=== PATIENT | male | born 1950 | race African-American/Black ===

== ENCOUNTER 2017-11-04 14:59 | Inpatient (IN) | payer OTHER ==
[2017-11-04 15:21] VITALS: BMI 16.0
--- NOTE | 2017-11-04 16:56 | HP ---
COWS - Scale Resting Pulse: 2= [place] 101-120 Sweatin= Chills/Flushing Restless Observation: 1= Difficult to Sit Still Pupil Size: 1= Pupils >than Normal Bone or Joint Aches: 1= Mild Discomfort Runny Nose/ Eye Tearin= Constantly Teary/Runny GI Upset > 30mins: 0= None Tremor Observation: 1= Tremor [place]amay, Not Seen Yawning Observation: 1= 1-2x During Session Anxiety or Irritability: 2=Irritable/Anxious Goose Flesh Skin: 0=Smooth Skin COWS Score: 14 CIWA Score - CIWA Score Nausea/Vomitin-Mild Nausea/No Vomiting Muscle Tremors: 2 Anxiety: 4-Mod. Anxious/Guarded Agitation: 0-Normal Activity Paroxysmal Sweats: 1-Minimal Palms Moist Orientation: 3-Disoriented Date>2 days Tacttile Disturbances: 1-Very Mild Itch/Numbness Auditory Disturbances: 1-Very Mild Visual Disturbances: 1-Very Mild Sensitivity Headache: 1-Very Mild CIWA-Ar Total Score: 15 Admission [facility] - HPI Chief Complaint: withdrawal symptoms Allergies/Adverse Reactions: Allergies Allergy/AdvReac Type Severity Reaction Status Date / Time No Known Allergies Allergy Verified 11/04/17 16:50 History of Present Illness: 67 yo male with history of alcohol, heroin, nicotine dependence is here for detox. Reports 15 year cigarette smoking hx currently smokes 3 cigarettes per day. PHMX: HTN, Asthma, DMII, and frequent falls. Currently uses a rollator walker to ambulate d/t unsteady gait. Currently not in Methadone Program. Last detox 2014, does not recall the name of the facility. Longest period of sobriety 6 months. Denies suicidal / homicidal ideation or suicide attempts. Exam Limitations: No Limitations - Ebola screening Have you traveled outside of the country in the last 21 days: No (N) Have you had contact with anyone from an Ebola affected area: No Have you been sick,other than usual withdrawal symptoms: No Do you have a fever: No - Review of Systems Constitutional: Weakness (bilateral lower extremities), Unintentional Wgt. Loss (last three weeks lost 15 lbs) EENT: reports: No Symptoms Reported, Other (missing teeth, wears glasses) Respiratory: reports: Cough (2 - 3 weeks) Cardiac: reports: No Symptoms Reported GI: reports: Poor Fluid Intake, Abdominal cramping : reports: Urgency, Other (reports hx acute kidney failure. Nocturia, reports wakes up 10x at night. Reports ocassional incotinence episodes.) Musculoskeletal: reports: Muscle Weakness (lower extremities) Integumentary: reports: Dryness Neuro: reports: Headache, Unsteady Gait, Other (forgetfulness) Endocrine: reports: Increased Thirst, Change in Weight Hematology: reports: Anemia Psychiatric: reports: Orientated x3 (needs prompting , cueing and additional time to respond), Depressed Other Systems: Reviewed and Negative Patient History - Patient Medical History Hx Anemia: No Hx Asthma: Yes (currently on treatment) Hx Chronic Obstructive Pulmonary Disease (COPD): No Hx Cancer: No Hx Cardiac Disorders: No Hx Congestive Heart Failure: No Hx Hypertension: Yes (currently on treatment) Hx Hypercholesterolemia: No Hx Pacemaker: No HX Cerebrovascular Accident: No Hx Seizures: No Hx Dementia: No (but reports hes forgetful ) Hx Diabetes: Yes Hx Gastrointestinal Disorders: No Hx Liver Disease: No Hx Genitourinary Disorders: No Hx Sexually Transmitted Disorders: No Hx Renal Disease (ESRD): No Hx Thyroid Disease: No Hx Human Immunodeficiency Virus (HIV): No Hx Hepatitis C: No Hx Depression: No Hx Suicide Attempt: No Hx Bipolar Disorder: No Hx Schizophrenia: No - Patient Surgical History Past Surgical History: No Hx Neurologic Surgery: No Hx Cataract Extraction: No Hx Cardiac Surgery: No Hx Lung Surgery: No Hx Breast Surgery: No Hx Breast Biopsy: No Hx Abdominal Surgery: No Hx Appendectomy: No Hx Cholecystectomy: No Hx Genitourinary Surgery: No Hx Section: No Hx Orthopedic Surgery: No Anesthesia Reaction: No - PPD History Previous Implant?: Yes Documented Results: Negative w/o proof Date: 11/11/12 PPD to be Administered?: Yes - Reproductive History Patient is a Female of Child Bearing Age (11 -55 yrs old): Yes - Smoking Cessation Smoking history: Current every day smoker Have you smoked in the past 12 months: Yes Aproximately how many cigarettes per day: 5 Hx Chewing Tobacco Use: No Initiated information on smoking cessation: Yes 'Breaking Loose' booklet given: 11/04/17 - Substance & Tx. History Hx Alcohol Use: Yes Hx Substance Use: Yes Substance Use Type: Alcohol, Heroin Hx Substance Use Treatment: Yes (2014) - Substances Abused Heroin Route: Inhalation Frequency: Daily Amount used: 25-35 BAGS Age of first use: 18 Date of Last Use: 11/04/17 Alcohol Route: Oral Frequency: Daily Amount used: 2 PINTS VODKA Age of first use: 20 Date of Last Use: 11/04/17 Family Disease History - Family Disease History Family Disease History: Other: Father (dec, Leukemia), Mother (dec, DM ) Admission Physical Exam S - Vital Signs Vital Signs: Vital Signs - 24 hr 11/04/17 15:19 Temperature 96 F L Pulse Rate 101 H Respiratory 20 Rate Blood Pressure 153/100 - Physical General Appearance: Yes: Disheveled, Cachetic, Thin, Anxious, Other (patient was very tearful during assesment) HEENTM: Yes: EOMI, Hearing grossly Normal, Normal ENT Inspection, Normocephalic , Normal Voice, KATHLEEN, Pharynx Normal, Other (poor dentation, wears top dentures , uses glasses) Respiratory: Yes: Chest Non-Tender, Lungs Clear, Normal Breath Sounds, No Respiratory Distress, No Accessory Muscle Use Neck: Yes: Within Normal Limits, No masses,lesions,Nodules, Supple, Trachea in good position Breast: Yes: Breast Exam Deferred Cardiology: Yes: Regular Rhythm, Regular Rate, S1, S2 Abdominal: Yes: Normal Bowel Sounds, Non Tender, Flat, Soft Genitourinary: Yes: Uregency, Nocturia Back: Yes: Within Normal Limits, Normal Inspection Musculoskeletal: Yes: full range of Motion, Other (uses a rollator walker to ambulate, slow unsteady gait) Extremities: Yes: Normal Capillary Refill, Normal Inspection, Normal Range of Motion, Non-Tender Neurological: Yes: senior marketing associate II-XII NML intact, Fully Oriented, Motor Strength 5/5, Depressed Affect, Other (Patient was very tearful during assessment. Patient requires additional time to process information and respond.) Integumentary: Yes: Normal Color, Dry, Warm Lymphatic: Yes: Within Normal Limits - Addiitonal Findings: HIV testing offered today, patient decline. Benefits and risk discussed. - Diagnostic (1) Opioid dependence with withdrawal Current Visit: Yes Status: Acute (2) Alcohol dependence with withdrawal Current Visit: Yes Status: Acute (3) Asthma Current Visit: Yes Status: Chronic Qualifiers: Asthma severity: mild (4) Essential hypertension Current Visit: Yes Status: Chronic (5) Diabetes mellitus type 2, insulin dependent Current Visit: Yes Status: Chronic (6) Weight loss Current Visit: Yes Status: Acute (7) Dependent on walker for ambulation Current Visit: Yes Status: Chronic (8) Dehydration Current Visit: Yes Status: Acute (9) Depressed mood Current Visit: Yes Status: Acute (10) Nicotine dependence Current Visit: Yes Status: Chronic Qualifiers: Nicotine product type: cigarettes Substance use status: uncomplicated Qualified Code(s): F17.210 - Nicotine dependence, cigarettes, uncomplicated Cleared for Admission S - Detox or Rehab [facility] Level of Care: Medically Managed Detox Regimen/Protocol: Methadone/Librium S Breath Alcohol Content Breath Alcohol Content: 0 Urine Drug Screen - Results Drug Screen Negative: No Urine Drug Screen Results: OPI-Opiates, MTD-Methadone
[2017-11-04] MEDS ORDERED: MENTHOL/PHENOL 1 EACH UD MM PRN (17:37)
[2017-11-04] MEDS ORDERED: chlordiazePOXIDE HCL 25 MG CAPSULE PO ONE (17:37)
[2017-11-04] MEDS ORDERED: ACETAMINOPHEN 325 MG TABLET (FP) PO PRN (17:37)
[2017-11-04] MEDS ORDERED: chlordiazePOXIDE HCL 25 MG CAPSULE PO PRN (17:37)
[2017-11-04] MEDS ORDERED: MAGNESIUM CITRATE 300 ML BOTTLE PO PRN (17:37)
[2017-11-04] MEDS ORDERED: NICOTINE POLACRILEX 2 MG GUM BC PRN (17:37)
[2017-11-04] MEDS ORDERED: MAG HYDROX/AL HYDROX/SIMETH 30 ML UNIT-DOSE CUP PO PRN (17:37)
[2017-11-04] MEDS ORDERED: LOPERAMIDE HCL 2 MG CAPSULE PO PRN (17:37)
[2017-11-04] MEDS ORDERED: guaiFENesin/D-METHORPHAN HB 10 ML UNIT-DOSE CUPS PO PRN (17:37)
[2017-11-04] MEDS ORDERED: MAGNESIUM HYDROX 2400MG/30ML ORAL SUSPENSION 30 ML CUP PO PRN (17:37)
[2017-11-04] MEDS ORDERED: P-EPHED 60MG/TRIPROLIDI 2.5MG TABLET PO PRN (17:37)
[2017-11-04] MEDS ORDERED: hydrOXYzine PAMOATE 25 MG CAPSULE (FP) PO PRN (17:37)
[2017-11-04] MEDS ORDERED: IBUPROFEN 400 MG TABLET (FP) PO PRN (17:37)
[2017-11-04] MEDS ORDERED: METHADONE HCL 10 MG TABLET (FOR DETOX USE ONLY) PO ONE ×2 (17:37→23:00)
[2017-11-04] MEDS ORDERED: ALBUTEROL SO4 18 GM HFA INHALER IH PRN (17:40)
[2017-11-04] MEDS ORDERED: ALBUTEROL SO4 2.5/IPRATROPIUM 0.5 INH SOL 3 ML VIAL.NEB. NEB PRN (18:03)
[2017-11-04] MEDS ORDERED: INSULIN (NOVOLOG) ASPART 100 UNITS/ML 10ML VIAL SQ SCH (19:00)
[2017-11-04] MEDS ORDERED: METHADONE HCL 10 MG TABLET (FOR DETOX USE ONLY) ONE (21:07)
[2017-11-04] MEDS ORDERED: INSULIN (NOVOLOG) ASPART 100 UNITS/ML 10ML VIAL ONE (22:11)
[2017-11-04] MEDS: chlordiazePOXIDE HCL 25 MG CAPSULE PO SCH (22:28)
[2017-11-04] MEDS: INSULIN DETEMIR 100 UNITS/ML MDV SQ SCH (22:34)
[2017-11-04] MEDS: INSULIN SLIDING SCALE (NOVOLOG) 1 VIAL SQ SCH (22:34)
[2017-11-04] MEDS: MONTELUKAST NA 10 MG TABLET PO SCH (22:35)
[2017-11-04] MEDS: THIAMINE HCL 100 MG TABLET (FP) PO SCH (22:35)
[2017-11-04 23:22] LABS: URINE APPEARANCE CLEAR; URINE BILIRUBIN NEGATIVE (NEGATIVE); URINE BLOOD 1+ (NEGATIVE); URINE COLOR COLORLESS; URINE GLUCOSE (UA) 3+ (NEGATIVE); URINE KETONE TRACE (NEGATIVE); URINE LEUK ESTERASE NEGATIVE (NEGATIVE); URINE NITRITE NEGATIVE (NEGATIVE); URINE UROBILINOGEN NEGATIVE mg/dL (0.2-1.0)
[2017-11-04 23:27] LABS: URINE PROTEIN 1+ (NEGATIVE)
[2017-11-05] MEDS: chlordiazePOXIDE HCL 25 MG CAPSULE PO SCH ×4 (06:01→22:19)
[2017-11-05] MEDS ORDERED: INSULIN (NOVOLOG) ASPART 100 UNITS/ML 10ML VIAL ONE ×2 (06:58→11:50)
[2017-11-05] MEDS: glyBURIDE 5 MG TABLET (UD) PO SCH (06:59)
[2017-11-05] MEDS ORDERED: INSULIN (NOVOLOG) ASPART 100 UNITS/ML 10ML VIAL SQ SCH (07:00)
[2017-11-05] MEDS: INSULIN SLIDING SCALE (NOVOLOG) 1 VIAL SQ SCH ×3 (07:00→16:38)
--- NOTE | 2017-11-05 09:11 | CONSULT ---
[facility] Psychiatric Consult - Data Date of interview: 11/05/17 Admission source: [facility] Identifying data: This is 67 years old AA, cachectic male, ambulating with walker, withy no psychiatric hospitalization history lookig for detox from: Opioids, Nicotine asnd Alcohol Substance Abuse History: - Smoking Cessation. Smoking history: Current every day smoker. Have you smoked in the past 12 months: Yes. Aproximately how many cigarettes per day: 5. Hx Chewing Tobacco Use: No. Initiated information on smoking cessation: Yes. 'Breaking Loose' booklet given: 11/04/17. - Substance & Tx. History. Hx Alcohol Use: Yes. Hx Substance Use: Yes. Substance Use Type : Alcohol, Heroin. Hx Substance Use Treatment: Yes (2014). - Substances Abused. Heroin. Route: Inhalation. Frequency: Daily. Amount used: 25-35 BAGS. Age of first use: 18. Date of Last Use: 11/04/17. Alcohol. Route: Oral. Frequency: Daily. Amount used: 2 PINTS VODKA. Age of first use: 20. Date of Last Use: 11/04/17 Medical History: Weight loss, HTN, DM-2, Umbulatientg with walker,. Patient reports both Kidneys failure, reports need nephrogy observation Psychiatric History: Patient bdenies past psychiatric history, reports no psychioatric medicastions usage prior to admission Physical/Sexual Abuse/Trauma History: Denies Additional Comment: Observation. Detox Unit Care Protocol Mental Status Exam - Mental Status Exam Alert and Oriented to: Place, Person Cognitive Function: Fair Patient Appearance: Unkempt Mood: Apprehensive Affect: Mood Congruent Patient Behavior: Cooperative Speech Pattern: Appropriate Voice Loudness: Mildly Soft/Quiet Thought Process: Goal Oriented Thought Disorder: Being Controlled Hallucinations: Denies Suicidal Ideation: Denies Homicidal Ideation: Denies Insight/Judgement: Fair Sleep: Fair Appetite: Weight loss Muscle strength/Tone: Mild Hypotonicity Gait/Station: Deferred Additional Comments: Observation. Detox Unit Care Protocol Psychiatric Findings - Problem List ([place] 1, 2,3) (1) Drug-induced mood disorder Current Visit: Yes Status: Acute (2) Alcohol dependence with withdrawal Current Visit: Yes Status: Acute (3) Depressed mood Current Visit: Yes Status: Acute (4) Opioid dependence with withdrawal Current Visit: Yes Status: Acute (5) Weight loss Current Visit: Yes Status: Acute (6) Nicotine dependence Current Visit: Yes Status: Chronic Qualifiers: Nicotine product type: cigarettes Substance use status: uncomplicated Qualified Code(s): F17.210 - Nicotine dependence, cigarettes, uncomplicated - Initial Treatment Plan Initial Treatment Plan: Observation. Detox Unit Care Protocol
--- NOTE | 2017-11-05 09:50 | EKG ---
Test Reason : Blood Pressure : / mmHG Vent. Rate : 084 BPM Atrial Rate : 084 BPM P-R Int : 150 ms QRS Dur : 084 ms QT Int : 400 ms P-R-T Axes : 085 -53 078 degrees QTc Int : 472 ms SINUS RHYTHM WITH OCCASIONAL PREMATURE VENTRICULAR COMPLEXES LEFT AXIS DEVIATION ANTEROSEPTAL INFARCT , AGE UNDETERMINED ABNORMAL ECG NO PREVIOUS ECGS AVAILABLE Confirmed by CHRISTOPHER GAO, RODRÍGUEZ ([id number]) on 11/05/2017 9:50:13 AM Referred By: Confirmed By:RODRÍGUEZ WHITE MD
[2017-11-05] MEDS ORDERED: METHADONE HCL 10 MG TABLET (FOR DETOX USE ONLY) PO SCH (10:00)
[2017-11-05 10:22] LABS: HEMATOCRIT 35.1 % (35.4-49); HEMOGLOBIN 10.6 GM/dL (11.7-16.9); MCHC 30.3 g/dl (32.0-35.9); MEAN PLT VOLUME 9.6 fl (7.5-11.1); PLATELET COUNT 138 K/MM3 (134-434); RBC 5.31 M/mm3 (4.00-5.60); RDW 16.4 % (11.9-15.9)
[2017-11-05 10:31] LABS: ALBUMIN 3.1 g/dl (3.4-5.0); ANION GAP 8 (8-16); BILIRUBIN,TOTAL 0.3 mg/dL (0.2-1.0); BLOOD UREA NITROGEN 31 mg/dL (7-18); CALCIUM 8.6 mg/dL (8.5-10.1); CHLORIDE 101 mmol/L (98-107); CO2 29 mmol/L (21-32); CREATININE 1.5 mg/dL (0.7-1.3); SGOT/AST 12 U/L (15-37); SGPT/ALT 23 U/L (12-78); SODIUM 138 mmol/L (136-145); TOT PROT 6.9 g/dl (6.4-8.2)
[2017-11-05 10:32] LABS: ALK PHOS 85 U/L (45-117)
[2017-11-05 10:39] LABS: GLUCOSE,RANDOM 405 mg/dL (74-106)
[2017-11-05] MEDS: LISINOPRIL 10 MG TABLET (FP) PO SCH (10:42)
[2017-11-05] MEDS: PRENATAL VITAMINS W/ FOLIC ACID TABLET (FP) PO SCH (10:42)
[2017-11-05] MEDS: NICOTINE 14 MG/24 HOURS TOPICAL PATCH TD SCH (10:44)
--- NOTE | 2017-11-05 10:56 | EKG ---
Test Reason : Blood Pressure : / mmHG Vent. Rate : 072 BPM Atrial Rate : 072 BPM P-R Int : 158 ms QRS Dur : 074 ms QT Int : 410 ms P-R-T Axes : 078 -34 060 degrees QTc Int : 448 ms NORMAL SINUS RHYTHM LEFT AXIS DEVIATION ABNORMAL ECG WHEN COMPARED WITH ECG OF 04-NOV-2017 21:36, PREMATURE VENTRICULAR COMPLEXES ARE NO LONGER PRESENT CRITERIA FOR ANTEROSEPTAL INFARCT ARE NO LONGER PRESENT Confirmed by RODRÍGUEZ WHITE MD ([id number]) on 11/05/2017 10:56:37 AM Referred By: Confirmed By:RODRÍGUEZ WHITE MD
[2017-11-05 11:23] LABS: SICKLE CELL SCREEN POSITIVE (NEGATIVE)
--- NOTE | 2017-11-05 11:30 | PN ---
[facility] CIWA - CIWA Score Nausea/Vomitin-No Nausea/No Vomiting Muscle Tremors: 4-Moderate,w/Arms Extend Anxiety: 4-Mod. Anxious/Guarded Agitation: 4-Moderately Restless Paroxysmal Sweats: 1-Minimal Palms Moist Orientation: 0-Oriented Tacttile Disturbances: 3-Moderate Itch/Numb/Burn Auditory Disturbances: 0-None Visual Disturbances: 0-None Headache: 0-None Present CIWA-Ar Total Score: 16 [facility] COWS - Scale Resting Pulse: 1= [place] 81-100 Sweatin= Chills/Flushing Restless Observation: 3= Extraneous Movement Pupil Size: 0= Normal to Room Light Bone or Joint Aches: 4=Acute Joint/Muscle Pain Runny Nose/ Eye Tearin= Nasal Congestion GI Upset > 30mins: 0= None [facility] Progress Note (SOAP) Subjective: ANXIETY,SWEATS,CONSTIPATED X 4-5 DAYS--REQUESTING MIRALAX. Objective: 11/05/17 11:29 Vital Signs Temperature 96.2 F L 11/05/17 09:07 Pulse Rate 81 11/05/17 09:07 Respiratory Rate 18 11/05/17 09:07 Blood Pressure 151/98 11/05/17 09:07 O2 Sat by Pulse Oximetry (%) Laboratory Last Values WBC 5.0 K/mm3 (4.0-10.0) 11/05/17 07:30 RBC 5.31 M/mm3 (4.00-5.60) 11/05/17 07:30 Hgb 10.6 GM/dL (11.7-16.9) L D 11/05/17 07:30 Hct 35.1 % (35.4-49) L 11/05/17 07:30 MCV 66.0 fl (80-96) L 11/05/17 07:30 MCH 20.0 pg (25.7-33.7) L 11/05/17 07:30 MCHC 30.3 g/dl (32.0-35.9) L 11/05/17 07:30 RDW 16.4 % (11.9-15.9) H 11/05/17 07:30 Plt Count 138 K/MM3 (134-434) 11/05/17 07:30 MPV 9.6 fl (7.5-11.1) 11/05/17 07:30 Sickle Cell Screen Positive (NEGATIVE) 11/05/17 07:30 Sodium 138 mmol/L (136-145) 11/05/17 07:30 Potassium 5.0 mmol/L (3.5-5.1) D 11/05/17 07:30 Chloride 101 mmol/L (98-107) 11/05/17 07:30 Carbon Dioxide 29 mmol/L (21-32) 11/05/17 07:30 Anion Gap 8 (8-16) 11/05/17 07:30 BUN 31 mg/dL (7-18) H D 11/05/17 07:30 Creatinine 1.5 mg/dL (0.7-1.3) H D 11/05/17 07:30 Creat Clearance w eGFR 46.68 (>60) 11/05/17 07:30 POC Glucometer 247 UNITS (80-120) 11/05/17 06:00 Random Glucose 405 mg/dL (74-106) H* D 11/05/17 07:30 Calcium 8.6 mg/dL (8.5-10.1) 11/05/17 07:30 Total Bilirubin 0.3 mg/dL (0.2-1.0) 11/05/17 07:30 AST 12 U/L (15-37) L D 11/05/17 07:30 ALT 23 U/L (12-78) D 11/05/17 07:30 Alkaline Phosphatase 85 U/L (45-117) 11/05/17 07:30 Total Protein 6.9 g/dl (6.4-8.2) 11/05/17 07:30 Albumin 3.1 g/dl (3.4-5.0) L 11/05/17 07:30 Urine Color Colorless 11/04/17 08:20 Urine Appearance Clear 11/04/17 08:20 Urine pH 5.0 (5.0-8.0) 11/04/17 08:20 Ur Specific [facility] 1.020 (1.001-1.035) 11/04/17 08:20 Urine Protein 1+ (NEGATIVE) H 11/04/17 08:20 Urine Glucose (UA) 3+ (NEGATIVE) H 11/04/17 08:20 Urine Ketones Trace (NEGATIVE) H 11/04/17 08:20 Urine Blood 1+ (NEGATIVE) H 11/04/17 08:20 Urine Nitrite Negative (NEGATIVE) 11/04/17 08:20 Urine Bilirubin Negative (NEGATIVE) 11/04/17 08:20 Urine Urobilinogen Negative mg/dL (0.2-1.0) 11/04/17 08:20 Ur Leukocyte Esterase Negative (NEGATIVE) 11/04/17 08:20 Urine WBC (Auto) <1 /hpf (3-5) 11/04/17 08:20 Urine RBC (Auto) 1 /hpf (0-3) 11/04/17 08:20 Assessment: 11/05/17 11:30 WITHDRAWAL SX OIC Plan: CONTINUE DETOX MIRALAX DIRECTED INCREASE PO FLUIDS.
[2017-11-05] MEDS: POLYETHYLENE GLYCOL 3350 119 GM BTL PO SCH ×2 (14:13→22:46)
[2017-11-05] MEDS: THIAMINE HCL 100 MG TABLET (FP) PO SCH (22:17)
[2017-11-05] MEDS: MONTELUKAST NA 10 MG TABLET PO SCH (22:17)
[2017-11-05] MEDS: INSULIN DETEMIR 100 UNITS/ML MDV SQ SCH (22:19)
[2017-11-06] MEDS: chlordiazePOXIDE HCL 25 MG CAPSULE PO SCH ×2 (06:04→10:47)
[2017-11-06] MEDS: glyBURIDE 5 MG TABLET (UD) PO SCH (06:04)
[2017-11-06] MEDS: INSULIN SLIDING SCALE (NOVOLOG) 1 VIAL SQ SCH ×5 (06:48→21:20)
[2017-11-06] MEDS ORDERED: INSULIN (NOVOLOG) ASPART 100 UNITS/ML 10ML VIAL ONE ×3 (07:04→21:02)
[2017-11-06] MEDS: POLYETHYLENE GLYCOL 3350 119 GM BTL PO SCH ×2 (10:47→21:19)
[2017-11-06] MEDS: METHADONE HCL 5 MG TABLET (FOR DETOX USE ONLY) PO SCH (10:47)
[2017-11-06] MEDS: NICOTINE 14 MG/24 HOURS TOPICAL PATCH TD SCH (10:47)
[2017-11-06] MEDS: PRENATAL VITAMINS W/ FOLIC ACID TABLET (FP) PO SCH (10:47)
[2017-11-06] MEDS: LISINOPRIL 10 MG TABLET (FP) PO SCH (10:48)
--- NOTE | 2017-11-06 11:21 | PN ---
[facility] CIWA - CIWA Score Nausea/Vomitin-No Nausea/No Vomiting Muscle Tremors: 3 Anxiety: 4-Mod. Anxious/Guarded Agitation: 3 Paroxysmal Sweats: No Perspiration Orientation: 1-Uncertain about Date Tacttile Disturbances: 3-Moderate Itch/Numb/Burn Auditory Disturbances: 0-None Visual Disturbances: 0-None Headache: 0-None Present CIWA-Ar Total Score: 14 [facility] COWS - Scale Resting Pulse: 0= [place] 80 or Below Sweatin= Chills/Flushing Restless Observation: 0= Sits Still Pupil Size: 0= Normal to Room Light Bone or Joint Aches: 4=Acute Joint/Muscle Pain Runny Nose/ Eye Tearin= None GI Upset > 30mins: 0= None Tremor Observation of Outstretched Hands: 2= Slight Tremor Visible Yawning Observation: 1= 1-2x During Session Anxiety or Irritability: 2=Irritable/Anxious Goose Flesh Skin: 0=Smooth Skin COWS Score: 10 [facility] Progress Note (SOAP) Subjective: PT SEEN SITTING ON HIS BED. PT VERBALIZED TIREDNESS/ APPEARS WEAK. REPORTS ATE HIS BREAKFAST. PT HAD A BM POST MIRALAX TREATMENT. Objective: 11/06/17 11:20 Vital Signs Temperature 96.6 F L 11/06/17 09:30 Pulse Rate 78 11/06/17 09:30 Respiratory Rate 18 11/06/17 09:30 Blood Pressure 99/62 11/06/17 09:30 O2 Sat by Pulse Oximetry (%) Laboratory Last Values WBC 5.0 K/mm3 (4.0-10.0) 11/05/17 07:30 RBC 5.31 M/mm3 (4.00-5.60) 11/05/17 07:30 Hgb 10.6 GM/dL (11.7-16.9) L D 11/05/17 07:30 Hct 35.1 % (35.4-49) L 11/05/17 07:30 MCV 66.0 fl (80-96) L 11/05/17 07:30 MCH 20.0 pg (25.7-33.7) L 11/05/17 07:30 MCHC 30.3 g/dl (32.0-35.9) L 11/05/17 07:30 RDW 16.4 % (11.9-15.9) H 11/05/17 07:30 Plt Count 138 K/MM3 (134-434) 11/05/17 07:30 MPV 9.6 fl (7.5-11.1) 11/05/17 07:30 Sickle Cell Screen Positive (NEGATIVE) 11/05/17 07:30 Sodium 138 mmol/L (136-145) 11/05/17 07:30 Potassium 5.0 mmol/L (3.5-5.1) D 11/05/17 07:30 Chloride 101 mmol/L (98-107) 11/05/17 07:30 Carbon Dioxide 29 mmol/L (21-32) 11/05/17 07:30 Anion Gap 8 (8-16) 11/05/17 07:30 BUN 31 mg/dL (7-18) H D 11/05/17 07:30 Creatinine 1.5 mg/dL (0.7-1.3) H D 11/05/17 07:30 Creat Clearance w eGFR 46.68 (>60) 11/05/17 07:30 POC Glucometer 505 UNITS (80-120) 11/06/17 06:03 Random Glucose 503 mg/dL (74-106) H* D 11/06/17 06:00 Calcium 8.6 mg/dL (8.5-10.1) 11/05/17 07:30 Total Bilirubin 0.3 mg/dL (0.2-1.0) 11/05/17 07:30 AST 12 U/L (15-37) L D 11/05/17 07:30 ALT 23 U/L (12-78) D 11/05/17 07:30 Alkaline Phosphatase 85 U/L (45-117) 11/05/17 07:30 Total Protein 6.9 g/dl (6.4-8.2) 11/05/17 07:30 Albumin 3.1 g/dl (3.4-5.0) L 11/05/17 07:30 Urine Color Colorless 11/04/17 08:20 Urine Appearance Clear 11/04/17 08:20 Urine pH 5.0 (5.0-8.0) 11/04/17 08:20 Ur Specific [place] 1.020 (1.001-1.035) 11/04/17 08:20 Urine Protein 1+ (NEGATIVE) H 11/04/17 08:20 Urine Glucose (UA) 3+ (NEGATIVE) H 11/04/17 08:20 Urine Ketones Trace (NEGATIVE) H 11/04/17 08:20 Urine Blood 1+ (NEGATIVE) H 11/04/17 08:20 Urine Nitrite Negative (NEGATIVE) 11/04/17 08:20 Urine Bilirubin Negative (NEGATIVE) 11/04/17 08:20 Urine Urobilinogen Negative mg/dL (0.2-1.0) 11/04/17 08:20 Ur Leukocyte Esterase Negative (NEGATIVE) 11/04/17 08:20 Urine WBC (Auto) <1 /hpf (3-5) 11/04/17 08:20 Urine RBC (Auto) 1 /hpf (0-3) 11/04/17 08:20 RPR Titer Nonreactive (NONREACTIVE) 11/05/17 07:30 Hepatitis C Antibody >11.0 s/co ratio (0.0-0.9) H 11/04/17 07:30 Assessment: 11/06/17 11:20 WITHDRAWAL SX Plan: CONTINUE DETOX STOPPED LIBRIUM 25 MG DOSES. RE-EVALUATE PATIENT FROM LIBRIUM 15 MG DENA DOWNWARDS. INCREASE PO FLUIDS.
[2017-11-06] MEDS ORDERED: FERROUS SO4 325 MG TABLET (FP) PO SCH (11:45)
[2017-11-06] MEDS ORDERED: INSULIN SLIDING SCALE (NOVOLOG) 1 VIAL SQ SCH (16:30)
[2017-11-06] MEDS: MONTELUKAST NA 10 MG TABLET PO SCH (21:11)
[2017-11-06] MEDS: INSULIN DETEMIR 100 UNITS/ML MDV SQ SCH (21:20)
[2017-11-06] MEDS: THIAMINE HCL 100 MG TABLET (FP) PO SCH (21:20)
[2017-11-06] MEDS: chlordiazePOXIDE 5 MG CAPSULE PO SCH (22:30)
[2017-11-07] MEDS: glyBURIDE 5 MG TABLET (UD) PO SCH (06:10)
[2017-11-07] MEDS: INSULIN SLIDING SCALE (NOVOLOG) 1 VIAL SQ SCH ×4 (06:37→22:41)
[2017-11-07] MEDS: chlordiazePOXIDE 5 MG CAPSULE PO SCH (06:37)
--- NOTE | 2017-11-07 06:46 | PN ---
[facility] Progress Note Note: Patient was seen and examined in bed. He is status post a witnessed fall in the day room. He states that he fell on his back from his walker. He is alert and oriented to person, place and time. No visible injury noted or reported. Patient is stable and denies pain, dizziness or confusion. Fall protocol #2 initiated. Vital sign B/P 138/85, HR 86, R 16, T 96.4.
[2017-11-07] MEDS: LISINOPRIL 10 MG TABLET (FP) PO SCH (10:04)
[2017-11-07] MEDS: PRENATAL VITAMINS W/ FOLIC ACID TABLET (FP) PO SCH (10:06)
[2017-11-07] MEDS: METHADONE HCL 5 MG TABLET (FOR DETOX USE ONLY) PO SCH (10:06)
[2017-11-07] MEDS: NICOTINE 14 MG/24 HOURS TOPICAL PATCH TD SCH (10:07)
[2017-11-07] MEDS: POLYETHYLENE GLYCOL 3350 119 GM BTL PO SCH ×2 (10:08→22:42)
--- NOTE | 2017-11-07 11:21 | PN ---
[facility] Progress Note (SOAP) Subjective: PT WAS SEEN DURING ROUNDS STANDING BY HIS BEDSIDE. ALERT O X 3. NAD. Objective: 11/07/17 11:20 Vital Signs Temperature 96.3 F L 11/07/17 11:03 Pulse Rate 73 11/07/17 11:03 Respiratory Rate 18 11/07/17 11:03 Blood Pressure 127/83 11/07/17 11:03 O2 Sat by Pulse Oximetry (%) Laboratory Last Values WBC 5.0 K/mm3 (4.0-10.0) 11/05/17 07:30 RBC 5.31 M/mm3 (4.00-5.60) 11/05/17 07:30 Hgb 10.6 GM/dL (11.7-16.9) L D 11/05/17 07:30 Hct 35.1 % (35.4-49) L 11/05/17 07:30 MCV 66.0 fl (80-96) L 11/05/17 07:30 MCH 20.0 pg (25.7-33.7) L 11/05/17 07:30 MCHC 30.3 g/dl (32.0-35.9) L 11/05/17 07:30 RDW 16.4 % (11.9-15.9) H 11/05/17 07:30 Plt Count 138 K/MM3 (134-434) 11/05/17 07:30 MPV 9.6 fl (7.5-11.1) 11/05/17 07:30 Sickle Cell Screen Positive (NEGATIVE) 11/05/17 07:30 Sodium 138 mmol/L (136-145) 11/05/17 07:30 Potassium 5.0 mmol/L (3.5-5.1) D 11/05/17 07:30 Chloride 101 mmol/L (98-107) 11/05/17 07:30 Carbon Dioxide 29 mmol/L (21-32) 11/05/17 07:30 Anion Gap 8 (8-16) 11/05/17 07:30 BUN 31 mg/dL (7-18) H D 11/05/17 07:30 Creatinine 1.5 mg/dL (0.7-1.3) H D 11/05/17 07:30 Creat Clearance w eGFR 46.68 (>60) 11/05/17 07:30 POC Glucometer 121 UNITS (80-120) 11/07/17 06:09 Random Glucose 503 mg/dL (74-106) H* D 11/06/17 06:00 Calcium 8.6 mg/dL (8.5-10.1) 11/05/17 07:30 Total Bilirubin 0.3 mg/dL (0.2-1.0) 11/05/17 07:30 AST 12 U/L (15-37) L D 11/05/17 07:30 ALT 23 U/L (12-78) D 11/05/17 07:30 Alkaline Phosphatase 85 U/L (45-117) 11/05/17 07:30 Total Protein 6.9 g/dl (6.4-8.2) 11/05/17 07:30 Albumin 3.1 g/dl (3.4-5.0) L 11/05/17 07:30 Urine Color Colorless 11/04/17 08:20 Urine Appearance Clear 11/04/17 08:20 Urine pH 5.0 (5.0-8.0) 11/04/17 08:20 Ur Specific [place] 1.020 (1.001-1.035) 11/04/17 08:20 Urine Protein 1+ (NEGATIVE) H 11/04/17 08:20 Urine Glucose (UA) 3+ (NEGATIVE) H 11/04/17 08:20 Urine Ketones Trace (NEGATIVE) H 11/04/17 08:20 Urine Blood 1+ (NEGATIVE) H 11/04/17 08:20 Urine Nitrite Negative (NEGATIVE) 11/04/17 08:20 Urine Bilirubin Negative (NEGATIVE) 11/04/17 08:20 Urine Urobilinogen Negative mg/dL (0.2-1.0) 11/04/17 08:20 Ur Leukocyte Esterase Negative (NEGATIVE) 11/04/17 08:20 Urine WBC (Auto) <1 /hpf (3-5) 11/04/17 08:20 Urine RBC (Auto) 1 /hpf (0-3) 11/04/17 08:20 RPR Titer Nonreactive (NONREACTIVE) 11/05/17 07:30 Hepatitis C Antibody >11.0 s/co ratio (0.0-0.9) H 11/04/17 07:30 Assessment: 11/07/17 11:20 WITHDRAWAL SX Plan: CONTINUE DETOX D/C LIBRIUM TAPER. INCREASE PO FLUIDS MONITOR PT'S STATUS
[2017-11-07] MEDS ORDERED: INSULIN (NOVOLOG) ASPART 100 UNITS/ML 10ML VIAL ONE ×3 (11:34→21:31)
[2017-11-07] MEDS: MONTELUKAST NA 10 MG TABLET PO SCH (22:33)
[2017-11-07] MEDS: THIAMINE HCL 100 MG TABLET (FP) PO SCH (22:33)
[2017-11-07] MEDS: INSULIN DETEMIR 100 UNITS/ML MDV SQ SCH (22:42)
[2017-11-07] MEDS ORDERED: chlordiazePOXIDE HCL 10 MG CAPSULE PO SCH (23:00)
[2017-11-08 04:59] LABS: HGB SOLUBILITY Positive (Negative); Hgb A 74.1 % (96.4-98.8); Hgb C 0 % (0.0); Hgb F 0 % (0.0-2.0); Hgb S 21.5 % (0.0)
[2017-11-08] MEDS: INSULIN SLIDING SCALE (NOVOLOG) 1 VIAL SQ SCH ×4 (07:11→22:46)
[2017-11-08] MEDS: glyBURIDE 5 MG TABLET (UD) PO SCH (07:11)
[2017-11-08] MEDS ORDERED: INSULIN (NOVOLOG) ASPART 100 UNITS/ML 10ML VIAL ONE ×3 (07:49→22:56)
[2017-11-08] MEDS ORDERED: METHADONE HCL 10 MG TABLET (FOR DETOX USE ONLY) PO SCH (10:00)
[2017-11-08] MEDS: PRENATAL VITAMINS W/ FOLIC ACID TABLET (FP) PO SCH (10:41)
[2017-11-08] MEDS: NICOTINE 14 MG/24 HOURS TOPICAL PATCH TD SCH (10:43)
[2017-11-08] MEDS: LISINOPRIL 10 MG TABLET (FP) PO SCH (10:43)
[2017-11-08] MEDS: POLYETHYLENE GLYCOL 3350 119 GM BTL PO SCH ×2 (10:43→22:47)
--- NOTE | 2017-11-08 16:58 | PN ---
[facility] Progress Note (SOAP) Subjective: Sweating, anxious, interrupted sleep Objective: 11/08/17 16:53 Last Vital Signs Temp Pulse Resp BP Pulse Ox 97.4 F L 88 18 107/70 11/08/17 14:12 11/08/17 14:12 11/08/17 14:12 11/08/17 14:12 Laboratory Tests 11/04/17 11/04/17 11/05/17 07:30 08:20 06:00 WBC RBC Hgb Hct MCV MCH MCHC RDW Plt Count MPV Sickle Cell Screen Hemoglobin A Hemoglobin A2 Hemoglobin C Hemoglobin S Variant Hemoglobin Hemoglobin Interpret Maternal Rh Hemoglobin Solubility Sodium Potassium Chloride Carbon Dioxide Anion Gap BUN Creatinine Creat Clearance w eGFR POC Glucometer 247 Random Glucose Calcium Total Bilirubin AST ALT Alkaline Phosphatase Total Protein Albumin Urine Color Colorless Urine Appearance Clear Urine pH 5.0 Ur Specific [place] 1.020 Urine Protein 1+ H Urine Glucose (UA) 3+ H Urine Ketones Trace H Urine Blood 1+ H Urine Nitrite Negative Urine Bilirubin Negative Urine Urobilinogen Negative Ur Leukocyte Esterase Negative Urine WBC (Auto) <1 Urine RBC (Auto) 1 RPR Titer Hepatitis C Antibody >11.0 H 11/05/17 11/05/17 11/05/17 07:30 07:30 07:30 WBC 5.0 RBC 5.31 Hgb 10.6 L D Hct 35.1 L MCV 66.0 L MCH 20.0 L MCHC 30.3 L RDW 16.4 H Plt Count 138 MPV 9.6 Sickle Cell Screen Positive Hemoglobin A Hemoglobin A2 Hemoglobin C Hemoglobin S Variant Hemoglobin Hemoglobin Interpret Maternal Rh Hemoglobin Solubility Sodium 138 Potassium 5.0 D Chloride 101 Carbon Dioxide 29 Anion Gap 8 BUN 31 H D Creatinine 1.5 H D Creat Clearance w eGFR 46.68 POC Glucometer Random Glucose 405 H* D Calcium 8.6 Total Bilirubin 0.3 AST 12 L D ALT 23 D Alkaline Phosphatase 85 Total Protein 6.9 Albumin 3.1 L Urine Color Urine Appearance Urine pH Ur Specific [place] Urine Protein Urine Glucose (UA) Urine Ketones Urine Blood Urine Nitrite Urine Bilirubin Urine Urobilinogen Ur Leukocyte Esterase Urine WBC (Auto) Urine RBC (Auto) RPR Titer Nonreactive Hepatitis C Antibody 11/05/17 11/05/17 11/05/17 07:30 11:42 16:26 WBC RBC Hgb Hct MCV MCH MCHC RDW Plt Count MPV Sickle Cell Screen Hemoglobin A 74.1 L Hemoglobin A2 4.4 H Hemoglobin C 0 Hemoglobin S 21.5 H Variant Hemoglobin TNP Hemoglobin Interpret Maternal Rh 0 Hemoglobin Solubility Positive H Sodium Potassium Chloride Carbon Dioxide Anion Gap BUN Creatinine Creat Clearance w eGFR POC Glucometer 471 93 Random Glucose Calcium Total Bilirubin AST ALT Alkaline Phosphatase Total Protein Albumin Urine Color Urine Appearance Urine pH Ur Specific [place] Urine Protein Urine Glucose (UA) Urine Ketones Urine Blood Urine Nitrite Urine Bilirubin Urine Urobilinogen Ur Leukocyte Esterase Urine WBC (Auto) Urine RBC (Auto) RPR Titer Hepatitis C Antibody 11/05/17 11/06/17 11/06/17 21:18 06:00 06:03 WBC RBC Hgb Hct MCV MCH MCHC RDW Plt Count MPV Sickle Cell Screen Hemoglobin A Hemoglobin A2 Hemoglobin C Hemoglobin S Variant Hemoglobin Hemoglobin Interpret Maternal Rh Hemoglobin Solubility Sodium Potassium Chloride Carbon Dioxide Anion Gap BUN Creatinine Creat Clearance w eGFR POC Glucometer 314 505 Random Glucose 503 H* D Calcium Total Bilirubin AST ALT Alkaline Phosphatase Total Protein Albumin Urine Color Urine Appearance Urine pH Ur Specific [place] Urine Protein Urine Glucose (UA) Urine Ketones Urine Blood Urine Nitrite Urine Bilirubin Urine Urobilinogen Ur Leukocyte Esterase Urine WBC (Auto) Urine RBC (Auto) RPR Titer Hepatitis C Antibody 11/06/17 11/06/17 11/06/17 11:34 16:31 20:12 WBC RBC Hgb Hct MCV MCH MCHC RDW Plt Count MPV Sickle Cell Screen Hemoglobin A Hemoglobin A2 Hemoglobin C Hemoglobin S Variant Hemoglobin Hemoglobin Interpret Maternal Rh Hemoglobin Solubility Sodium Potassium Chloride Carbon Dioxide Anion Gap BUN Creatinine Creat Clearance w eGFR POC Glucometer [phone] Random Glucose Calcium Total Bilirubin AST ALT Alkaline Phosphatase Total Protein Albumin Urine Color Urine Appearance Urine pH Ur Specific [place] Urine Protein Urine Glucose (UA) Urine Ketones Urine Blood Urine Nitrite Urine Bilirubin Urine Urobilinogen Ur Leukocyte Esterase Urine WBC (Auto) Urine RBC (Auto) RPR Titer Hepatitis C Antibody 11/07/17 11/07/17 11/07/17 06:09 11:30 16:28 WBC RBC Hgb Hct MCV MCH MCHC RDW Plt Count MPV Sickle Cell Screen Hemoglobin A Hemoglobin A2 Hemoglobin C Hemoglobin S Variant Hemoglobin Hemoglobin Interpret Maternal Rh Hemoglobin Solubility Sodium Potassium Chloride Carbon Dioxide Anion Gap BUN Creatinine Creat Clearance w eGFR POC Glucometer 121 252 155 Random Glucose Calcium Total Bilirubin AST ALT Alkaline Phosphatase Total Protein Albumin Urine Color Urine Appearance Urine pH Ur Specific [place] Urine Protein Urine Glucose (UA) Urine Ketones Urine Blood Urine Nitrite Urine Bilirubin Urine Urobilinogen Ur Leukocyte Esterase Urine WBC (Auto) Urine RBC (Auto) RPR Titer Hepatitis C Antibody 11/07/17 11/08/17 11/08/17 21:06 05:44 11:12 WBC RBC Hgb Hct MCV MCH MCHC RDW Plt Count MPV Sickle Cell Screen Hemoglobin A Hemoglobin A2 Hemoglobin C Hemoglobin S Variant Hemoglobin Hemoglobin Interpret Maternal Rh Hemoglobin Solubility Sodium Potassium Chloride Carbon Dioxide Anion Gap BUN Creatinine Creat Clearance w eGFR POC Glucometer 183 208 161 Random Glucose Calcium Total Bilirubin AST ALT Alkaline Phosphatase Total Protein Albumin Urine Color Urine Appearance Urine pH Ur Specific [place] Urine Protein Urine Glucose (UA) Urine Ketones Urine Blood Urine Nitrite Urine Bilirubin Urine Urobilinogen Ur Leukocyte Esterase Urine WBC (Auto) Urine RBC (Auto) RPR Titer Hepatitis C Antibody 11/08/17 16:32 WBC RBC Hgb Hct MCV MCH MCHC RDW Plt Count MPV Sickle Cell Screen Hemoglobin A Hemoglobin A2 Hemoglobin C Hemoglobin S Variant Hemoglobin Hemoglobin Interpret Maternal Rh Hemoglobin Solubility Sodium Potassium Chloride Carbon Dioxide Anion Gap BUN Creatinine Creat Clearance w eGFR POC Glucometer 132 Random Glucose Calcium Total Bilirubin AST ALT Alkaline Phosphatase Total Protein Albumin Urine Color Urine Appearance Urine pH Ur Specific [place] Urine Protein Urine Glucose (UA) Urine Ketones Urine Blood Urine Nitrite Urine Bilirubin Urine Urobilinogen Ur Leukocyte Esterase Urine WBC (Auto) Urine RBC (Auto) RPR Titer Hepatitis C Antibody Labs noted: bun 31, serum cr 1.5, abnl UA, elevated glucose Assessment: 11/08/17 16:56 Withdrawal symptoms Noted with KRISTIN, hyperglycemia and abnormal UA Plan: Continue detox KRISTIN: encouraged to drink lots of water, repeat bmp Hyperglycemia secondary to DMT2: continue regimen, encourage adherence to diabetic diet Abnormal UA: encouraged to drink lots of water, repeat UA
[2017-11-08] MEDS: MONTELUKAST NA 10 MG TABLET PO SCH (22:46)
[2017-11-08] MEDS: THIAMINE HCL 100 MG TABLET (FP) PO SCH (22:46)
[2017-11-08] MEDS: INSULIN DETEMIR 100 UNITS/ML MDV SQ SCH (22:47)
[2017-11-09] MEDS ORDERED: METHADONE HCL 5 MG TABLET (FOR DETOX USE ONLY) PO SCH (06:00)
[2017-11-09] MEDS: glyBURIDE 5 MG TABLET (UD) PO SCH (07:16)
[2017-11-09] MEDS: INSULIN SLIDING SCALE (NOVOLOG) 1 VIAL SQ SCH ×4 (07:35→22:46)
[2017-11-09] MEDS ORDERED: INSULIN (NOVOLOG) ASPART 100 UNITS/ML 10ML VIAL ONE ×3 (07:35→22:56)
[2017-11-09 10:20] LABS: ANION GAP 4 (8-16); BLOOD UREA NITROGEN 34 mg/dL (7-18); CALCIUM 7.9 mg/dL (8.5-10.1); CHLORIDE 107 mmol/L (98-107); CO2 28 mmol/L (21-32); CREATININE 1.4 mg/dL (0.7-1.3); GLUCOSE,RANDOM 220 mg/dL (74-106); POTASSIUM 5.2 mmol/L (3.5-5.1); SODIUM 139 mmol/L (136-145)
[2017-11-09] MEDS: POLYETHYLENE GLYCOL 3350 119 GM BTL PO SCH ×2 (10:44→22:46)
[2017-11-09] MEDS: NICOTINE 14 MG/24 HOURS TOPICAL PATCH TD SCH (10:48)
[2017-11-09] MEDS: PRENATAL VITAMINS W/ FOLIC ACID TABLET (FP) PO SCH (10:48)
[2017-11-09] MEDS: LISINOPRIL 10 MG TABLET (FP) PO SCH (10:48)
--- NOTE | 2017-11-09 13:12 | PN ---
S Progress Note (SOAP) Subjective: weak sweats some shakes Objective: 11/09/17 13:10 Appears weak/tired Slightly tremulous Vital Signs Temperature 98.3 F 11/09/17 09:28 Pulse Rate 81 11/09/17 09:28 Respiratory Rate 18 11/09/17 09:28 Blood Pressure 118/74 11/09/17 09:28 O2 Sat by Pulse Oximetry (%) Assessment: 11/09/17 13:11 continue detox Plan: continue detox For d/c tomorrow To be picked up at 11am by [facility]
[2017-11-09 18:57] LABS: URINE APPEARANCE SLCLOUDY; URINE BILIRUBIN NEGATIVE (NEGATIVE); URINE BLOOD NEGATIVE (NEGATIVE); URINE COLOR YELLOW; URINE GLUCOSE (UA) 3+ (NEGATIVE); URINE KETONE NEGATIVE (NEGATIVE); URINE LEUK ESTERASE NEGATIVE (NEGATIVE); URINE NITRITE NEGATIVE (NEGATIVE); URINE PROTEIN NEGATIVE (NEGATIVE); URINE UROBILINOGEN NEGATIVE mg/dL (0.2-1.0)
[2017-11-09] MEDS ORDERED: cloNIDine HCL 0.1 MG TABLET PO ONE (20:45)
[2017-11-09] MEDS: amLODIPine BESYLATE 10 MG TABLET (FP) PO SCH (20:59)
[2017-11-09] MEDS: INSULIN DETEMIR 100 UNITS/ML MDV SQ SCH (22:45)
[2017-11-09] MEDS: MONTELUKAST NA 10 MG TABLET PO SCH (22:45)
[2017-11-09] MEDS: THIAMINE HCL 100 MG TABLET (FP) PO SCH (22:45)
[2017-11-10] MEDS: glyBURIDE 5 MG TABLET (UD) PO SCH (06:25)
[2017-11-10] MEDS ORDERED: INSULIN (NOVOLOG) ASPART 100 UNITS/ML 10ML VIAL ONE (06:36)
[2017-11-10] MEDS: INSULIN SLIDING SCALE (NOVOLOG) 1 VIAL SQ SCH ×2 (06:56→11:03)
[2017-11-10] MEDS: PRENATAL VITAMINS W/ FOLIC ACID TABLET (FP) PO SCH (09:47)
[2017-11-10 09:58] VITALS: BP 132/83; PULSE 97; TEMP 98.1
--- NOTE | 2017-11-10 10:48 | DS ---
[facility] Detox Discharge Summary Admission Date: 11/04/17 Discharge Date: 11/10/17 - History Additional Comments: Pt is being picked up at 11am by transportation home today. Pt is A & O x 3, ambulates with a walker. reports feeling betther than when he first came. Pt declines prescriptions at this time, states he still has his meds at home and has an appt with his PMD (Dr Kearney @ [facility], [address]) next week where he will get refills if necessary. Pertinent Past History: Asthma HTN DM 2 Depression Ambulates with a walker - Physical Exam Results Vital Signs: Vital Signs Temperature 98.1 F 11/10/17 09:59 Pulse Rate 97 H 11/10/17 09:59 Respiratory Rate 18 11/10/17 09:59 Blood Pressure 132/83 11/10/17 09:59 O2 Sat by Pulse Oximetry (%) Pertinent Admission Physical Exam Findings: withdrawal sx Vital Signs Temperature 98.1 F 11/10/17 09:59 Pulse Rate 97 H 11/10/17 09:59 Respiratory Rate 18 11/10/17 09:59 Blood Pressure 132/83 11/10/17 09:59 O2 Sat by Pulse Oximetry (%) - Treatment Hospital Course: Detox Protocol Followed, Detoxed Safely, Responded well, Discharged Condition Good, Rehab Referral Accepted Patient has Accepted a Rehab Referral to: O/P at [facility] - Medication Discharge Medications: Ambulatory Orders Albuterol Sulfate Inhaler - [Ventolin HFA Inhaler -] 2 inh IH Q4H PRN 11/09/12 Montelukast Na [Singulair] 10 mg PO HS 11/09/12 Glyburide [Diabeta -] 5 mg PO DAILY@0700 11/04/17 Insulin (Novolog) [Novolog Flexpen] 0 units SQ AC 11/04/17 Insulin Glargine,Hum.rec.anlog [Lantus Solostar PEN (NF)] 12 units SQ HS Lisinopril 10 mg PO DAILY 11/04/17 Metformin HCl [Glucophage] 500 mg PO DAILY 11/04/17 Amlodipine Besylate 10 mg PO DAILY 11/09/17 - Diagnosis (1) Alcohol dependence with withdrawal Current Visit: Yes Status: Acute (2) Opioid dependence with withdrawal Current Visit: Yes Status: Acute (3) Drug-induced mood disorder Current Visit: Yes Status: Acute (4) Asthma Current Visit: Yes Status: Chronic Qualifiers: Asthma severity: mild Asthma persistence: unspecified Asthma complication type: uncomplicated Qualified Code(s): J45.909 - Unspecified asthma, uncomplicated (5) Nicotine dependence Current Visit: Yes Status: Chronic Qualifiers: Nicotine product type: cigarettes Substance use status: in withdrawal Qualified Code(s): F17.213 - Nicotine dependence, cigarettes, with withdrawal (6) Dependent on walker for ambulation Current Visit: Yes Status: Chronic (7) Essential hypertension Current Visit: Yes Status: Chronic (8) Type 2 diabetes mellitus with hyperglycemia Current Visit: Yes Status: Chronic - AMA Did Patient Leave Against Medical Advice: No
[2017-11-10] MEDS: LISINOPRIL 10 MG TABLET (FP) PO SCH (11:03)
[2017-11-10] MEDS: NICOTINE 14 MG/24 HOURS TOPICAL PATCH TD SCH (11:03)
[2017-11-10] MEDS: POLYETHYLENE GLYCOL 3350 119 GM BTL PO SCH (11:03)
[2017-11-10] MEDS: amLODIPine BESYLATE 10 MG TABLET (FP) PO SCH (11:03)
== END 2017-11-10 14:05 | disposition home or self-care (01) | DRG 897 ==
LOC: YASAS 14:59 → Y3N 17:20
PROVIDERS: ADMIT Internal Medicine; ATTEND Internal Medicine
PROC: HZ2ZZZZ Detoxification Services for Substance Abuse Treatment (ICD-10-PCS; principal; 2017-11-04)
DX: F11.23 Opioid dependence with withdrawal (principal); N17.9 Acute kidney failure, unspecified; F10.230 Alcohol dependence with withdrawal, uncomplicated; F17.213 Nicotine dependence, cigarettes, with withdrawal; F19.24 Other psychoactive substance dependence with psychoactive substance-induced mood disorder; F32.9 Major depressive disorder, single episode, unspecified; D57.3 Sickle-cell trait; E86.0 Dehydration; I10 Essential (primary) hypertension; E11.65 Type 2 diabetes mellitus with hyperglycemia; J45.909 Unspecified asthma, uncomplicated; R82.90 Unspecified abnormal findings in urine; R26.2 Difficulty in walking, not elsewhere classified; K59.01 Slow transit constipation; Z99.89 Dependence on other enabling machines and devices; Z87.898 Personal history of other specified conditions; Z79.4 Long term (current) use of insulin; Z79.84 Long term (current) use of oral hypoglycemic drugs; W18.30XA Fall on same level, unspecified, initial encounter; Y93.01 Activity, walking, marching and hiking; Y92.238 Other place in hospital as the place of occurrence of the external cause
CPT/HCPCS: 36415; 80048; 80053; 81003; 81015; 82947; 82962; 83021; 85027; 85660; 86593; 86803; 87522; 93005; 93010